=== PATIENT | female | born 1985 | race Hispanic/Latino ===

== ENCOUNTER 2018-10-15 12:18 | Emergency (ER) | payer OTHER ==
[2018-10-15 12:48] VITALS: BP 133/82; PULSE 69; RESP 16; TEMP 98; O2SAT 100
--- NOTE | 2018-10-15 15:37 | ED PDOC ---
Upper Extremity Pain/Injury Time Seen by Provider: 10/15/18 12:50 Chief Complaint (Nursing): Abnormal Skin Integrity Chief Complaint (Provider): Abnormal Skin Integrity History Per: Patient History/Exam Limitations: no limitations Onset/Duration Of Symptoms: Hrs Current Symptoms Are (Timing): Still Present Additional Complaint(s): 33 y/o F with hx of iron deficiency anemia presents to ED with finger laceration after using a knife to cut a bagel this morning. Patient states the knife slipped cutting herself and she came to the ED immediately. She states she has not taken any medication prior to arrival. Denies numbness or tingling in finger, as well as joint pain. Patient also denies history of asthma, HTN, high cholesterol, or bleeding disorder. Past Medical History Reviewed: Historical Data, Nursing Documentation, Vital Signs Vital Signs: Last Vital Signs Temp 98.0 F 10/15/18 12:44 Pulse 69 10/15/18 12:44 Resp 16 10/15/18 12:44 BP 133/82 10/15/18 12:44 Pulse Ox 100 10/15/18 12:44 - Medical History PMH: Denies: Asthma, HTN, Hypercholesterolemia - Family History Family History: States: Unknown Family Hx - Social History Current smoker - smoking cessation education provided: No Ex-Smoker (has not smoked in the last 12 months): No Alcohol: Social Drugs: Denies - Immunization History Hx Tetanus Toxoid Vaccination: Yes (Updated in 2013) - Home Medications Home Medications: Ambulatory Orders Medication Instructions Recorded Cephalexin [Keflex] 500 mg PO TID #21 cap 12/05/14 oxyCODONE/Acetaminophen [Percocet 1 tab PO Q4H PRN #15 tab 12/05/14 5/325 mg Tab] - Allergies Allergies/Adverse Reactions: Allergies Allergy/AdvReac Type Severity Reaction Status Date / Time No Known Allergies Allergy Verified 10/15/18 12:44 Review of Systems ROS Statement: Except As Marked, All Systems Reviewed And Found Negative Musculoskeletal: Positive for: Hand Pain (left 2nd digit) Neurological: Negative for: Numbness Physical Exam - Reviewed Nursing Documentation Reviewed: Yes Vital Signs Reviewed: Yes - Physical Exam Appears: Positive for: No Acute Distress Head Exam: Positive for: ATRAUMATIC, NORMOCEPHALIC Pulses-Radial (L): 2+ Extremity: Positive for: Normal ROM (normal fexion and extension at DIP), Capillary Refill (<2 seconds), Other (approximately 1 cm horizontal laceration to distal portion of 2nd digit perpendicular to nail bed; no involvement of nail bed; (+) bleeding, no erythema, no purulent drainage) Neurologic/Psych: Positive for: Alert, Oriented. Negative for: Motor/Sensory Deficits - ECG O2 Sat by Pulse Oximetry: 100 (RA) Pulse Ox Interpretation: Normal Medical Decision Making Medical Decision Making: Time: 12:50 Initial Impression: finger laceration Initial Plan: Attempted dermabond as laceration is very superficial but continued to bleed. Will repair with suture. 15:00: cleansed with betadine solution and saline; anesthetized with 1% lidocaine with digital nerve block as well as at incision site Time: 1540 Wound w/ minimal bleed and well opposed with manual closure so Dermabond placed successfully, no further bleeding. Bandage applied and cleansing instructions given. Scribe Attestation: Documented by Fausto Nicholson, acting as a scribe for Milena Lee PA-C. Provider Scribe Attestation: All medical record entries made by the Scribe were at my direction and personally dictated by me. I have reviewed the chart and agree that the record accurately reflects my personal performance of the history, physical exam, medical decision making, and the department course for this patient. I have also personally directed, reviewed, and agree with the discharge instructions and disposition. Procedures - Laceration/Wound Repair Left Distal Finger Number of Sutures: 2 Wound Complexity: Simple Disposition - Clinical Impression Clinical Impression: Finger laceration - Patient ED Disposition Is Patient to be Admitted: No Counseled Patient/Family Regarding: Diagnosis, Need For Followup, Rx Given - Disposition Referrals: Dav Montoya MD [Staff Provider] - Disposition: Routine/Home Disposition Time: 15:51 Condition: STABLE Additional Instructions: Keep area covered and dry until Dermabond falls off (should come off in 5 - 10 d ays on its own). Do not apply ointments or lotions to area while Dermabond is in place. Instructions: Laceration Repair With Glue (DC) Forms: [facility] (Eth[place]ian) Print Language: [place]ORE[place]
== END 2018-10-15 15:51 | disposition home or self-care (01) ==
LOC: H.ER 12:18
DX: S61.211A Laceration without foreign body of left index finger without damage to nail, initial encounter (principal); W26.0XXA Contact with knife, initial encounter; Y93.G1 Activity, food preparation and clean up; Z87.891 Personal history of nicotine dependence